=== PATIENT | female | born 1980 | race Two or more races ===

== ENCOUNTER 2025-02-26 19:31 | Emergency (ER) | payer MEDICAID, OTHER ==
[~2025-02-26] VITALS: Ht 154.9 cm; Wt 105.3 kg
--- NOTE | 2025-02-26 20:00 | ED.PDOC ---
History of Present Illness HPI Comments 44-year-old female who came to ER for high blood pressure. Patient denies any medical problems. States she went to urgent care earlier for nasal allergy/congestion. However she was noted to be hypertensive, 174/116 mm Hg, and EKG done shows possible inferior infarct. Patient denies ever being diagnosed with hypertension. Denies any chest pains or headaches or dizziness. Upon arrival blood pressure was 166/102 mm Hg REVIEW OF SYSTEMS: No fever, no chills, or fatigue HEENT: No sore throat, no earache, (+) nasal congestion, no neck pain. Cardiac: No chest pain. No palpitations. Lungs: No shortness of breath, no cough. GI: No nausea, no vomiting, no diarrhea, no constipation, no abdominal pain : No dysuria, frequency, or urgency. No hematuria. Musculoskeletal: No joint pain , no joint swelling, no extremity edema. Skin: No rash, no itching. Neuro: No headache, no dizziness, no weakness Physical exam General: Awake, alert and oriented. No acute distress. Skin: Skin in warm, dry and intact. Appropriate color for ethnicity. Nailbeds pink with no cyanosis. HEENT: The head is normocephalic and atraumatic. Conjunctivae are clear without exudates or hemorrhage. Sclera is non-icteric. EOM are intact. No signs of nystagmus. Eyelids are normal in appearance without swelling or lesions. Oral mucosa is pink and moist Neck: The neck is supple with normal range of motion. No JVD. Cardiac: Heart rate and rhythm are normal. No murmurs, gallops, or rubs are auscultated. Respiratory: No signs of respiratory distress. Lung sounds are clear in all lobes bilaterally without rales, rhonchi, or wheezes. Abdominal: Abdomen is soft, non-tender without distention. Bowel sounds are present and normoactive in all four quadrants. Extremities: Upper and lower extremities are atraumatic in appearance without deformity or edema. Neurological: The patient is awake, alert and oriented to person, place, and time with normal speech. Speech is clear. There is no facial asymmetry. Psychiatric: Appropriate mood and affect. Good judgement and insight. No visual or auditory hallucinations. 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 Was a procedure done?: No EKG EKG : Pulse Rate (adult): 95 Cardiac Rhythm: NSR Comments No STEMI Differential Dx Considerations may include: Anemia, electrolyte imbalance, sinusitis, hypertensive urgency, ACS, other X-Ray, Labs, Meds, VS Vital Signs Date Time Temp Pulse Resp B/P (MAP) Pulse Ox O2 Delivery O2 Flow Rate FiO2 02/26/25 21:56 97.9 86 16 153/89 (110) 98 97.9 02/26/25 21:16 95 02/26/25 21:08 95 02/26/25 19:33 97.9 111 20 166/102 98 97.9 Lab Test 02/26/25 20:11 Range/Units Troponin I High Sensitivity < 3 L </=34 ng/L Time of 1ST Reevaluation: 19:55 Reevaluation 1ST: Unchanged Patient Education/Counseling: Need For Follow Up Family Education/Counseling: Need For Follow Up SEPSIS Sepsis Screen Date sepsis recognized/suspect: Feb 26, 2025 Time Sepsis recognized/suspect: 1937 Recent Procedure: No On Antibiotic Therapy: No Respiratory Rate >20: No Heart Rate >90: No Temp<36 C (96.8 F) or >38.3 C: No SBP <90 or MAP <65 mmHG: No New Acute Mental Status Change: No Is the patient on CPAP, BIPAP,: No Physician Orders Electrocardigram (02/26/25 19:58) Vital Signs UPONDC (02/26/25 23:36) Notify Md If Abnormal Vs (02/26/25 21:47) Vital Signs Date Time Temp Pulse Resp B/P (MAP) Pulse Ox O2 Delivery O2 Flow Rate FiO2 02/26/25 21:56 97.9 86 16 153/89 (110) 98 97.9 02/26/25 21:16 95 02/26/25 21:08 95 02/26/25 19:33 97.9 111 20 166/102 98 97.9 Departure 1 Departure Time of Disposition: 21:44 Impression: Primary Impression: Elevated blood pressure reading Disposition: 01 HOME / SELF CARE / HOMELESS Condition: Stable Additional Instructions: INSTRUCCIONES DE JOE DE Urgencias Instrucciones: Maryam atentamente todas las instrucciones proporcionadas en david paquete. Aunque le hayan dado el joe del Departamento de Emergencias, esto no significa que tenga un "certificado de buena rickie". [] Hoy no se burgess realizado ningn diagnstico definitivo para jose luis sntomas. Es posible que ests en proceso de desarrollar ronnie enfermedad grave. Es por eso que debe regresar al servicio de urgencias sin falta si presenta algn sntoma nuevo o que empeora (especialmente si jose luis sntomas incluyen dolor en el pecho, dificultad para respirar, dolor abdominal, fiebre, dolor de hermelindo, confusin, dificultad para mike o caminar). Tambin es muy importante que consulte a un mdico de atencin primaria dentro de los prximos 3 a 5 bowden para realizar un seguimiento. Si no puede conseguir ronnie maureen, regrese al servicio de urgencias para ronnie nueva evaluacin. Tuviste un nivel de presin arterial elevado hoy. La hipertensin no tratada puede tener consecuencias graves. Sin embargo, necesitas ronnie maureen de seguimiento para volver a verificar tu presin arterial y determinar si necesitas tratamiento o no. Haz ronnie maureen con tu proveedor de atencin primaria para esto dentro de la prxima semana. Es muy importante que te comuniques con tu mdico de atencin primaria (PCP). Puedes llamar a tu compaa de seguros o verificar tu tarjeta de seguro para averiguar funmilayo es tu PCP. O llama al [phone] para programar ronnie maureen con un nuevo proveedor de atencin primaria. POR QU NECESITAS UN PCP: Establecerse y mike regularmente a un PCP y someterse a exmenes de rutina son vitales para mantener ronnie buena rickie. Tu PCP acta ernestine tu principal socio en rickie, ayudndote a mantenerte florinda, gestionar condiciones crnicas y detectar problemas potenciales a tiempo. Los exmenes de rutina, ernestine mamografas o colonoscopias, pueden detectar enfermedades ernestine el cncer temprano, cuando el tratamiento suele ser ms efectivo. Ronnie prueba de deteccin es ernestine un chequeo rpido que hace tu mdico para mike si hay problemas comenzando en tu cuerpo, incluso cuando te sientes roopa, para poder encontrarlos a tiempo, cuando son ms fciles de solucionar. Por qu establecer ronnie relacin con un mdico de atencin primaria (PCP)? Cuidado Preventivo: Zafar mdico de atencin primaria se centra en prevenir enfermedades a travs de chequeos regulares, vacunaciones y consejos de rickie adaptados a jose luis necesidades. Manejo de Enfermedades Crnicas: Si tiene ronnie condicin crnica, ernestine diabetes o presin arterial joe, zafar mdico de atencin primaria puede ayudarle a manejarla de manera efectiva a travs de monitoreo, manejo de medicamentos y recomendaciones de estilo de hcing. Deteccin Temprana: Las visitas regulares permiten que zafar mdico de atencin primaria siga zafar rickie a lo zack del tiempo, identifique cambios sutiles y solicite exmenes o pruebas necesarias para detectar problemas potenciales temprano. Recurso de Confianza: Zafar mdico de atencin primaria llega a conocerle, zafar historial mdico y jose luis preocupaciones, convirtindose en un recurso de confianza para todas jose luis preguntas relacionadas con la rickie. Referencias: Si necesita atencin especializada, zafar mdico de atencin primaria le referir a los especialistas adecuados y ayudar a coordinar zafar atencin. Continuidad de la Atencin: Zafar mdico de atencin primaria asegura que zafar ate ncin mdica est coordinada, especialmente despus de estancias en el hospital o visitas a otros especialistas. Por qu son importantes las pruebas de rutina? Deteccin temprana: Muchas enfermedades graves ernestine el cncer, la diabetes y las enfermedades del corazn pueden tratarse con mayor xito cuando se detectan a tiempo. Las pruebas de deteccin ernestine los anlisis de laboratorio, los controles de presin arterial, las mamografas, las colonoscopias y los anlisis de Papanicolaou estn diseadas para detectar estas enfermedades de manera temprana. Prevencin de enfermedades: Algunas pruebas de deteccin pueden ayudar a prev enir el desarrollo de enfermedades. Tranquilidad: Saber que ests al da con tus pruebas de deteccin puede proporcionar tranquilidad y reducir la ansiedad sobre posibles problemas de rickie. En resumen, establecer ronnie relacin con un mdico de atencin primaria y seguir jose luis recomendaciones para exmenes de rutina es importante para mantenerte saludable y gestionar tu rickie de manera efectiva. Es ronnie inversin en tu bienestar que puede resultar beneficiosa a zack plazo. Comments MDM: 44-year-old female referred from urgent care for EKG device reading of cardiac infarction. Patient denied having any chest pain. She actually went in to be seen for allergic rhinitis symptoms. She has no known history of hypertension but had an incidental elevated blood pressure reading. EKG and troponin negative here in the ED. Patient remained asymptomatic. Patient is advised of importance of follow up with the primary care provider for further evaluation and treatment of hypertension. She is felt stable for discharge home. I reviewed the following notes from the pt's past medical encounters: N/A The following tests were ordered, and results were reviewed by me: (See diagnostic results section) The following test were independently interpreted by me: EKG I discussed treatments and results with patient Decision regarding hospitalization or escalation of hospital level of care: Risks and benefits of admission for further treatment of patient's condition was considered however due to patient's stable condition patient will be discharged to follow up closely or return to care for worsening of condition or inability to follow up. Critical Care Note Critical Care Time?: No Stability Stability form required: No Heart Score Heart Score: Heart Score Response (Comments) Value History N/A 0 EKG N/A 0 Age N/A 0 Risk Factors N/A 0 Troponin N/A 0 Total 0 I personally scribed for AUDRA MO MD ([employer]) on 02/26/25 at 20:00. Electronically submitted by Vicente Morales ([employer]). I personally scribed for AUDRA MO MD ([employer]) on 02/26/25 at 21:16. Electronically submitted by Vicetne Morales ([employer]). AUDRA MO MD Feb 26, 2025 20:00
[2025-02-27 01:09] VITALS: BP 159/85; PULSE 83; RESP 20; TEMP 98.7; O2SAT 100
--- NOTE | 2025-02-27 12:02 | ECG ---
[facility] Test Date: 2025-02-26 Test Time: 21:08:02 Pat Name: YELITZA ESTRADA Department: Room: Gender: F Color Specialist: ALLY : 1980 Requested By: AUDRA MO Order Number: [id number] Reading MD: Butch Charles Measurements Intervals [place] Rate: 95 P: 48 KS: 131 QRS: 39 QRSD: 87 T: 19 QT: 350 QTc: 440 Interpretive Statements Sinus rhythm Electronically Signed On 03-02-2025 22:47:11 PDT by Butch Charles Please click the below link to view image of tracing.
== END 2025-02-27 01:16 | disposition home or self-care (01) ==
LOC: ER 19:31
DX: I10 Essential (primary) hypertension (principal)
CPT/HCPCS: 36415; 84484; 93005